=== PATIENT | female | born 1990 | race Caucasian/White ===

== ENCOUNTER 2024-06-19 20:15 | Emergency (ER) | payer MEDICAID ==
[~2024-06-19] VITALS: Ht 172.7 cm; Wt 62.0 kg
[2024-06-19 20:18] VITALS: BP 134/84; PULSE 80; RESP 18; TEMP 98.4; O2SAT 100
[2024-06-19] MEDS ORDERED: ACETAMINOPHEN 325MG TABLET PO ONE (21:00)
[2024-06-19] MEDS ORDERED: METOCLOPRAMIDE HCL 10MG/2ML VIAL IV ONE (21:00)
[2024-06-19] MEDS ORDERED: SODIUM CHLORIDE 0.9% 1,000 ML IV ONE (21:00)
[2024-06-19] MEDS ORDERED: METOCLOPRAMIDE HCL 10MG/2ML VIAL IM ONE (21:00)
[2024-06-19] MEDS ORDERED: KETOROLAC 15MG/ML VIAL IM ONE (21:00)
[2024-06-19] MEDS ORDERED: DEXAMETHASONE 10 MG/ML VIAL IM ONE (21:00)
== END 2024-06-19 21:11 | disposition left against medical advice (07) ==
LOC: ER 20:15
DX: R51.9 Headache, unspecified (principal); R11.0 Nausea; F41.9 Anxiety disorder, unspecified; F32.9 Major depressive disorder, single episode, unspecified
CPT/HCPCS: 99283; J7030